=== PATIENT | female | born 1960 | race Caucasian/White ===

== ENCOUNTER 2016-12-07 04:13 | Observation (INO) ==
[2016-12-07] MEDS ORDERED: Ketorolac 15 MG/ML VIAL IVP PRN (06:45)
[2016-12-07] MEDS ORDERED: *HR* Morphine 2 MG/ML SYRINGE IVP PRN ×3 (06:45→11:13)
[2016-12-07] MEDS ORDERED: 0.9 % Sodium Chloride 1,000 ML IVC SCH (06:45)
[2016-12-07] MEDS ORDERED: Naloxone 0.4 MG/ML INJ IVP PRN ×2 (06:45→11:13)
[2016-12-07] MEDS ORDERED: *HR* HYDROmorphone (PF) 1 MG/ML SYRINGE IVP PRN ×3 (06:45→11:13)
[2016-12-07] MEDS ORDERED: *HR* Promethazine 25 MG/ML VIAL IVP PRN ×2 (06:45→11:13)
[2016-12-07] MEDS ORDERED: Ondansetron 4 MG/2 ML VIAL IVP PRN ×2 (06:45→11:13)
[2016-12-07] MEDS ORDERED: *HR* Dextrose 50 % in Water (Syg) 50 ML SYRINGE IVP PRN ×2 (07:21→11:13)
[2016-12-07] MEDS ORDERED: Dextrose Gel 15 GM PO PRN ×4 (07:21→11:13)
[2016-12-07] MEDS ORDERED: D5% in Water 1,000 ML IV PRN ×2 (07:21→11:13)
--- NOTE | 2016-12-07 07:25 | Urology History & Physical ---
Date of Encounter: 12/07/16 Time of Encounter: 07:22 Assessment and Plan (1) Ureteral stone with hydronephrosis Current Visit: Yes Status: Acute based on her recent severe pain and presence of severe hydronephrosis we have elected to proceed with a ureteroscopic stone extraction today. we discussed risks including inability to extract all stone, perforation or injury to urinary tract, infection, stent complications. alternatives discussed including discharge and outpatient management with ESW[facility]. History of Present Illness Chief complaint: left flank pain HPI: Ms. Alejo is a 56 year old female with a history of stones. recent ER visit for a 1.5 cm left ureteral stone with severe hydronephrosis. pain decreased now but still present. has not felt well for one month Past Med Surg Social Fam HX - Past Medical History Medical history: diabetes, kidney stones Psychiatric history: no psych history - Past Surgical History Surgical History: appendectomy - Social History Smoking Status: Never smoker Smokeless Tobacco Status: No Alcohol use: none Drug use: none - Family History Mother Age: 74 Living Status: Still Living Hx Family Cancer: Yes (Breast) Father Age: 78 Living Status: Still Living Hx Family Cardiac Disorders: Yes (Bipass) Hx Family Endocrine Disorder: Yes (DM) Medications and Allergies Dulaglutide [Trulicity] 0.75 mg SQ QWEEK 12/07/16 [History] Empagliflozin/Linagliptin [Glyxambi 25 mg-5 mg Tablet] 25 mg SQ DAILY 12/07/16 [ History] Lisinopril [Zestril] 5 mg PO DAILY 12/07/16 [History] Metformin HCl [Fortamet] 1,000 mg PO BID 12/07/16 [History] Allergies acetaminophen [From Percocet] Adverse Reaction (Verified 12/07/16 02:18) Nausea Oxycodone [From Percocet] Adverse Reaction (Verified 12/07/16 02:18) Nausea sulfamethoxazole [From Bactrim] Adverse Reaction (Verified 12/07/16 02:18) Nausea trimethoprim [From Bactrim] Adverse Reaction (Verified 12/07/16 02:18) Nausea Review of Systems - Constitutional weakness, no malaise - EENT Nose, mouth and throat: no dizziness - Cardiovascular no chest pain, no chest pain at rest - Gastrointestinal abdominal pain, nausea - Genitourinary Genitourinary: flank pain - Musculoskeletal back pain - Integumentary no erythema - Neurological no confusion - Psychiatric no anxiety - Hematologic/Lymphatic no easy bleeding - Allergic/Immunologic no throat swelling Exam Initial Vital Signs Temp Pulse Resp BP Pulse Ox 98.5 F 80 17 104/70 98 12/07/16 05:44 12/07/16 05:44 12/07/16 05:44 12/07/16 05:44 12/07/16 05:44 - General physical appearance Present: well developed, no distress - Eyes Present: PERRL - ENT Present: normal nares - Neck Present: no masses - Respiratory Present: normal respiratory effort - Cardiovascular Cardiovascular exam IM: RRR - Abdomen Abdomen: Present: soft - Integumentary Present: no rash - Neurologic Present: normal coordination. Absent: disoriented, confused Urology Results - Labs All other labs normal.
--- NOTE | 2016-12-07 08:08 | Anesthesia Evaluation PreOp ---
Date of Encounter: 12/07/16 Time of Encounter: 08:06 - Past History Planned Operation: Left Ureteroscopic Stone Extraction Cardiac History: Denies any Significant Hx Pulmonary History: MARY Dx FLOOR RENOVATOR History: Denies Any Significant HX Other Medical History: Renal (kidney stones), Diabetes Type II Anesthesia History: No Prior Anesthetic Complications, Past Anesthesia Alcohol Use: none Drug use: none Medications and Allergies Dulaglutide [Trulicity] 0.75 mg SQ QWEEK 12/07/16 [History] Empagliflozin/Linagliptin [Glyxambi 25 mg-5 mg Tablet] 25 mg SQ DAILY 12/07/16 [ History] Lisinopril [Zestril] 5 mg PO DAILY 12/07/16 [History] Metformin HCl [Fortamet] 1,000 mg PO BID 12/07/16 [History] Allergies acetaminophen [From Percocet] Adverse Reaction (Verified 12/07/16 02:18) Nausea Oxycodone [From Percocet] Adverse Reaction (Verified 12/07/16 02:18) Nausea sulfamethoxazole [From Bactrim] Adverse Reaction (Verified 12/07/16 02:18) Nausea trimethoprim [From Bactrim] Adverse Reaction (Verified 12/07/16 02:18) Nausea - Meds/Allergy Pre-op Review Medications Reviewed: Yes Allergies Reviewed: Yes Beta Blockers on Current Med List: No Anesthesia Results - Labs Laboratory Tests 12/07/16 12/07/16 04:19 04:19 WBC 9.7 Hgb 13.6 Hct 39.6 Plt Count 301 Sodium 139 Potassium 4.4 BUN 21 H Creatinine 1.09 - Imaging Additional studies: 05/28/2012 Stress Impression: * Stress EKG is negative for ischemia. * The exercise capacity was fair. * Patient had no chest pain during stress. * The patient demonstrated normal blood pressure response. * Gated EF = 72% * Normal wall motion in stress. * There is a moderate size, mild intensity reversible defect involving the mid to distal anteroseptum and apex suggestive of ischemia. * Critical results called to Dr. Snider's office. 07/16/2012 Cath Impression: Minimal atherosclerotic coronary artery disease. The left ventricular ejection fraction was 60%. The overall left ventricular systolic function was normal. 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 Normal right heart hemodynamics. Anesthesia Exam Vital Signs/O2 Sat, Most Current Temp Pulse Resp BP Pulse Ox 97.7 F 77 16 106/71 97 12/07/16 06:50 12/07/16 06:50 12/07/16 06:50 12/07/16 06:50 12/07/16 06:50 Blood glucose: 104 Height: 5'5.5" Weight: 203 lbs/92.1 kg NPO (# of Hours): 8 Pain Scale: 0 Pain Scale Used: Numeric (1 - 10) - HEENT Pupil (Motor): EOMI Mallampati: II Teeth: Normal Oral Opening: Greater than 3 - FLOOR RENOVATOR LOC: Oriented FLOOR RENOVATOR Motor: Normal RUE, Normal LUE, Normal RLE, Normal LLE, Normal Face FLOOR RENOVATOR Sensory: Normal: RUE, LUE, Face, Deficit: RLE, LLE - Cardiac Rhythm: Regular Murmur: None - Pulmonary Breath Sounds: bilateral Clear Respiratory Effort: Symmetrical Anesthesia Assess/Plan ASA Score: 2 Modified Cherelle Scale for Level of Consciousness: Cooperative, oriented, and tranquil Anesthetic Plan: General Monitoring Plan: Standard Monitors Recovery Plan: PACU
[2016-12-07] MEDS ORDERED: *HR* Midazolam HCl 2 MG/2 ML VIAL ONE (08:51)
[2016-12-07] MEDS ORDERED: *HR* Rocuronium Bromide 50 MG/5 ML VIAL ONE (08:53)
[2016-12-07] MEDS ORDERED: Lidocaine -MPF 2% 2 ML VIAL ONE (08:53)
[2016-12-07] MEDS ORDERED: *HR* Succinylcholine 200 MG/10 ML VIAL IVP ONE (08:53)
[2016-12-07] MEDS ORDERED: *HR* FentaNYL (PF) 100 MCG/2 ML VIAL ONE (08:53)
[2016-12-07] MEDS ORDERED: *HR* Propofol 200 MG/20 ML VIAL IVP ONE (08:53)
[2016-12-07] MEDS ORDERED: Dexamethasone 4 MG/ML VIAL ONE (09:52)
[2016-12-07] MEDS ORDERED: Ondansetron 4 MG/2 ML VIAL ONE (09:52)
--- NOTE | 2016-12-07 10:59 | Operative Note ---
Date of procedure: 12/07/16 Pre-op diagnosis: left 1.5 cm mid ureteral stone Post-op diagnosis: same Procedure: left ureteroscopic stone extraction with holmium laser left RPG left JJ stent Anesthesia: GETA Surgeon: Johnathan Palmer Estimated blood loss (cc): 0 Specimen: stone Condition: stable Disposition: PACU Procedure in Detail: PROCEDURE IN DETAIL: Patient was taken back to the operating room, positioned supine on the operating table. Anesthesia was applied without complication. They were moved into dorsal lithotomy. Careful attention was maintained to cushion all pressure points for patient's safety. They were prepped and draped in sterile fashion. Time-out was performed with the proper patient and procedure. A 21-Colombian rigid cystoscope was inserted into the bladder without difficulty. Systematic examination of bladder revealed no abnormalities. The ureteral orifice was cannulated using a 5-Colombian ureteral Catheter and a retrograde pyelogram was performed using Isovue. A filling defect was identified which corresponded to the stone. I suspect the stone is uric acid as it did not visualize with fluoroscopy prior to the retrograde At that point , a zip wire was placed through the 5-Colombian and confirmed in the renal pelvis with fluoroscopy. An 8-10 dilator was then placed over the zip wire to passively dilate the ureteral orifice. A semi-rigid ureteroscope was carefully inserted into the bladder and guided into the ureteral oriface. At that point, the stone was encountered and I felt that it required fragmentation for safe extraction. A 200 micron holmium laser fiber on a setting of 8 and 800 was used to fragment the stone into multiple pieces. The fragments were individually basketed out of the ureter with a 1.9 tipless basket. All stone in the ureter was removed. A 4.8 x 26 ureteral stent was placed over the zip wire under fluoroscopy without complication. The bladder was drained along with the stone fragments. They were collected and sent for stone analysis. No string was left attached to the stent
--- NOTE | 2016-12-07 11:02 | Discharge Summary ---
Date of Encounter: 12/07/16 Time of Encounter: 10:59 - Discharge Diagnosis (1) Ureteral stone with hydronephrosis Priority: Primary Status: Resolved Comments: s/p stone extraction - Discharge Medications Prescriptions: HYDROcodone/Acet 5/325 mg [[place] 5-325 mg] 1 tab PO Q4H PRN #15 tab PRN Reason: Pain Phenazopyridine HCl [Pyridium] 200 mg PO TIDAC PRN #15 tab PRN Reason: burning with urination Home Medications: Dulaglutide [Trulicity] 0.75 mg SQ QWEEK 12/07/16 [History] Empagliflozin/Linagliptin [Glyxambi 25 mg-5 mg Tablet] 25 mg SQ DAILY 12/07/16 [ History] HYDROcodone/Acet 5/325 mg [[place] 5-325 mg] 1 tab PO Q4H PRN #15 tab 12/07/16 [Rx ] Lisinopril [Zestril] 5 mg PO DAILY 12/07/16 [History] Metformin HCl [Fortamet] 1,000 mg PO BID 12/07/16 [History] Phenazopyridine HCl [Pyridium] 200 mg PO TIDAC PRN #15 tab 12/07/16 [Rx] Allergies/Adverse Reactions: Allergies acetaminophen [From Percocet] Adverse Reaction (Verified 12/07/16 02:18) Nausea Oxycodone [From Percocet] Adverse Reaction (Verified 12/07/16 02:18) Nausea sulfamethoxazole [From Bactrim] Adverse Reaction (Verified 12/07/16 02:18) Nausea trimethoprim [From Bactrim] Adverse Reaction (Verified 12/07/16 02:18) Nausea Labs on day of discharge: Labs from last 24 hours 12/07/16 08:21 POC Glucose 104 H - Impressions ITS Impressions Retrograde Pyelogram 12/07/16 00:00 IMPRESSION: Intraprocedural fluoroscopic spot images as above. See separate procedure report for more information. D/ / 12/07/2016 10:57:59 Nikolas Frey MD / marion Interpreting Provider: Nikolas Frey MD Date of admission: 12/07/16 05:24 Primary care physician: Hossein Snider DO Discharging clinician: Johnathan Palmer Anticipated date of discharge: 12/07/16 - Patient Status Disposition: Home, Self-Care Condition: Good Functional capacity at discharge: independent ambulation Overall status at discharge: patient is progressing back to baseline - Discharge Instructions Follow Up With: Hossein Snider DO [Primary Care Provider] - Johnathan Palmer MD [Partnered Physician] - (friday for cystoscopy stent removal if provider is in the office otherwise appointment will be Friday for cystoscopy stent removal) Additional Instructions: Expect stent discomfort including urgency, frequency, burning on urination, blood in the urine, flank pain during urination. This is normal. Call if symptoms are excessive or fever over 101 Stent will be removed in the office next Friday or Friday depending on provider availability - Diet and Activity Activity: increase activity as tolerated Diet: diabetic diet - Hospital Course Hospital course: Ms. Alejo is a 56 year old female admitted with a 1.5 cm left midureteral calculi with severe hydronephrosis. She underwent a successful stone extraction and stent placement today. Potential discharge today or tomorrow depending on pain control - Time Spent with Patient Total time spent providing and/or coordinating discharge services: Less than 30 minutes Exam Initial Vital Signs Temp Pulse Resp BP Pulse Ox 98.5 F 80 17 104/70 98 12/07/16 05:44 12/07/16 05:44 12/07/16 05:44 12/07/16 05:44 12/07/16 05:44 - General physical appearance Present: well developed, no distress - VTE Documentation of Mechanical Device: Intermittent pneumatic compression device
--- NOTE | 2016-12-07 11:12 | Anesthesia Evaluation Post Op ---
Date of Encounter: 12/07/16 Time of Encounter: 11:12 - Vital Signs Vital Signs: Vital Signs/O2 Sat, Most Current Temp Pulse Resp BP Pulse Ox 97.3 F L 87 14 107/71 98 12/07/16 10:47 12/07/16 11:07 12/07/16 11:07 12/07/16 11:07 12/07/16 11:07 - Lungs Lungs: Clear Ascult./Percussion - Airway Airway: Non-obstructed - Cardiovascular Regular Rate - Mental Status Mental Status: Alert & Oriented, Answers Appropriately - Pain Pain Scale: 0 Pain Scale used: Numeric (1 - 10) - Nausea Vomiting Nausea Vomiting: Not Present - Hydration Hydration: NPO, Has not voided - Discharge PostOp Status: Transfer Patient to floor
[2016-12-07] MEDS: 0.9 % Sodium Chloride 1,000 ML IVC SCH ×2 (11:41→23:45)
[2016-12-07] MEDS: Insulin LISPRO 300 UNITS/3 ML VIAL SQ SCH ×3 (11:42→23:42)
[2016-12-07] MEDS ORDERED: Insulin LISPRO 300 UNITS/3 ML VIAL SQ SCH (12:00)
[2016-12-07] MEDS: *HR* HYDROcodone/Acet 5/325 mg TABLET PO PRN ×2 (16:23→21:22)
[2016-12-08] MEDS: Insulin LISPRO 300 UNITS/3 ML VIAL SQ SCH (05:30)
[2016-12-08 06:47] VITALS: BP 116/70
--- NOTE | 2016-12-08 08:45 | Urology Progress Note ---
Date of Encounter: 12/08/16 Time of Encounter: 08:44 - Assessment and Plan (1) Ureteral stone with hydronephrosis Current Visit: Yes Status: Resolved Assessment and plan: Ok with discharge this AM. no post op complications. Progress Note Subjective: feels better Narrative: minimal stent discomfort Objective Initial Vital Signs Temp Pulse Resp BP Pulse Ox 98.5 F 80 17 104/70 98 12/07/16 05:44 12/07/16 05:44 12/07/16 05:44 12/07/16 05:44 12/07/16 05:44 - General physical appearance Present: well developed, no distress - VTE Documentation of Mechanical Device: Intermittent pneumatic compression device Consult Discharge Plan - Plan Additional Instructions: Expect stent discomfort including urgency, frequency, burning on urination, blood in the urine, flank pain during urination. This is normal. Call if symptoms are excessive or fever over 101 Stent will be removed in the office next Friday or Friday depending on provider availability Referrals: Hossein Snider DO [Primary Care Provider] - Johnathan Palmer MD [Partnered Physician] - (friday for cystoscopy stent removal if provider is in the office otherwise appointment will be Friday for cystoscopy stent removal) Prescriptions: HYDROcodone/Acet 5/325 mg [[place] 5-325 mg] 1 tab PO Q4H PRN #15 tab PRN Reason: Pain Phenazopyridine HCl [Pyridium] 200 mg PO TIDAC PRN #15 tab PRN Reason: burning with urination
== END 2016-12-08 09:59 | disposition home or self-care (01) ==
LOC: 3NENU
PROVIDERS: ADMIT Urology; ATTEND Urology